=== PATIENT | female | born 1975 | race Caucasian/White ===

== ENCOUNTER 2017-02-17 16:00 | Emergency (ER) | payer BC, OTHER ==
[~2017-02-17] VITALS: Wt 124.7 kg
--- NOTE | 2017-02-17 17:52 | RADRPT ---
PROCEDURE: CT HEAD NON CONTRAST CLINICAL INDICATION: Headache, dizziness TECHNIQUE: Utilizing the multi-slice spiral CT scanner, multiple images were obtained through the b rain without intravenous contrast. Automatic exposure control was utilized as dose lowering techniqu e.DICOM images available One of more of the following dose reduction techniques were utilized: -automatic exposure control.-a djustment of the mA and/or kV according to patient size. -Use of iterative reconstruction technique. Radiation Dose: CTDI is 43.68 mGy. DLP is 720.23 mGy-cm. COMPARISON: None FINDINGS: Ventricular system and brain parenchyma appear unremarkable. No acute intracranial bleed, midline sh ift, acute extra-axial collection noted. The globe, retrobulbar area appears unremarkable. Bony calv arium and overlying soft tissues appear unremarkable. The globe, retrobulbar area appears unremarkab le IMPRESSION: NO ACUTE INTRACRANIAL BLEED NOTED. RPTAT: AAOO Physician Reji Date Time Electronically viewed and signed by Physician Reji on 02/17/2017 17:52 MB/
--- NOTE | 2017-02-17 18:04 | ERD ---
ER Documentation Chief Complaint Chief Complaint watson, nausea, bodyaches, dizzy, l. facial numb since last , - neuro def HPI 42-year-old female, history of obesity but states she is otherwise healthy presents with a left-sided headache with nausea, body aches, lightheadedness and left-sided facial numbness that started 5 days ago. The patient's pain is described as throbbing, moderate pain, with nausea but no vomiting. She reports a lightheaded sensation only, numbness to the left side of her face over the forehead and cheek. She has not had any deficits in terms of movement , visual changes. Patient was seen by her doctor last week and was given a prescription for Naprosyn, baclofen but she states that it has not improved. ROS All systems reviewed and are negative except as per history of present illness. Medications Home Meds Active Scripts Acetaminophen with Codeine (Acetaminophen-Cod #3 Tablet) 1 Each Tablet, 1 TAB PO Q6H Y for PAIN, #7 TAB Prov:LEONARDO AGRRIDO PA-C 02/17/17 Ondansetron (Ondansetron Odt) 4 Mg Tab.rapdis, 4 MG PO Q6H Y for NAUSEA AND/OR VOMITING, #10 TAB Prov:LEONARDO GARRIDO PA-C 02/17/17 Cephalexin* (Keflex*) 500 Mg Capsule, 500 MG PO TID for 7 Days, CAP Prov:LEONARDO GARRIDO PA-C 02/17/17 Allergies Allergies: Coded Allergies: No Known Allergy (Unverified , 02/17/17) Physical Exam Vitals Vital Signs Date Time Temp Pulse Resp B/P Pulse Ox O2 Delivery O2 Flow Rate FiO2 02/17/17 16:12 98.5 58 20 157/72 100 Physical Exam General: Well-developed, well-nourished. The patient appears in no acute distress. HEENT: Head is normocephalic, atraumatic. No scleral icterus. Neck: Supple. Nontender. Lungs: Clear to auscultation. Normal air movement. Heart: Regular rate and rhythm. S1 and S2 are normal. No murmurs, gallops, or rubs. Abdomen: Soft, nontender, nondistended. Bowel sounds are normoactive. Extremities: No clubbing or cyanosis. Normal pulses. Moving extremities x 4. No weakness. Neuro: M/S: Alert and oriented Face: EOMI, CN II-XII grossly intact Motor: Normal strength throughout Sensation: Normal sensation throughout Speech: Normal Cerebel: Normal coordination Normal gait Normal finger to nose DTR: 2+ and symmetric upper/lower extremities Skin: Normal turgor. No rash or lesions. Results 24 hrs Laboratory Tests Test 02/17/17 18:06 02/17/17 18:13 Bedside Glucose 107mg/dL Bedside Urine pH (LAB) 6.0 Bedside Urine Protein (LAB) Negative Bedside Urine Glucose (UA) Negative Bedside Urine Ketones (LAB) Negative Bedside Urine Blood Trace-lysed Bedside Urine Nitrite (LAB) Negative Bedside Urine Leukocyte Esterase (L Trace DIAGNOSTIC IMAGING REPORT Patient: CATRACHO SAHU : 1975 Age: 42 Sex: F MR #: [id number] DOS: 02/17/17 1701 Ordering MD: LEONARDO GARRIDO PA-C Location: [facility] Room/Bed: PROCEDURE: CT HEAD NON CONTRAST CLINICAL INDICATION: Headache, dizziness TECHNIQUE: Utilizing the multi-slice spiral CT scanner, multiple images were obtained through the brain without intravenous contrast. Automatic exposure control was utilized as dose lowering technique.DICOM images available One of more of the following dose reduction techniques were utilized: - automatic exposure control.-adjustment of the mA and/or kV according to patient size. -Use of iterative reconstruction technique. Radiation Dose: CTDI is 43.68 mGy. DLP is 720.23 mGy-cm. COMPARISON: None FINDINGS: Ventricular system and brain parenchyma appear unremarkable. No acute intracranial bleed, midline shift, acute extra-axial collection noted. The globe , retrobulbar area appears unremarkable. Bony calvarium and overlying soft tissues appear unremarkable. The globe, retrobulbar area appears unremarkable IMPRESSION: NO ACUTE INTRACRANIAL BLEED NOTED. RPTAT: AAOO Physician Reji Date Time Electronically viewed and signed by Physician Reji on 02/17/2017 17: 52 MB/ CC: LEONARDO GARRIDO PA-C Procedures/MDM 42-year-old female comes to emergency room with headache, dizziness, nausea and left-sided facial numbness. Patient's CT scan of the head is unremarkable, no evidence of mass-effect, midline shift or intracranial hemorrhage. Urine does show trace of esterase, given her history of dizziness, nausea patient was treated for UTI. Patient's symptoms are not consistent with a TIA, stroke, meningitis, encephalitis, transverse myelitis, acute coronary syndrome, dissection, DKA. Departure Diagnosis: Primary Impression: Headache Additional Impression: UTI (urinary tract infection) Condition: Good LEONARDO GARRIDO PA-C Feb 17, 2017 18:04
[2017-02-17 18:15] LABS: URINE BLOOD (Dip) POC Trace-lysed (NEGATIVE)
[2017-02-17] MEDS ORDERED: ACET1TAB40 PO (18:32)
[2017-02-17] MEDS ORDERED: CEPH-443 PO (18:32)
[2017-02-17] MEDS ORDERED: ONDA4TAB14 PO (18:32)
== END 2017-02-17 18:31 | disposition home or self-care (01) ==
LOC: FTE 16:00
DX: R51 Headache (principal); N39.0 Urinary tract infection, site not specified
CPT/HCPCS: 70450; 81003; 82962